=== PATIENT | male | born 1985 | race Caucasian/White ===

== ENCOUNTER 2018-02-13 17:10 | Emergency (ER) | payer MEDICAID ==
[~2018-02-13] VITALS: Ht 154.9 cm; Wt 66.0 kg
[2018-02-13 17:21] VITALS: BP 138/82
[2018-02-13] MEDS ORDERED: LAMO200T2 PO (17:57)
[2018-02-13] MEDS ORDERED: BREX1TAB PO (17:57)
[2018-02-13] MEDS ORDERED: OMEG100T PO (17:57)
== END 2018-02-13 18:15 | disposition home or self-care (01) ==
LOC: ED 18:08
DX: K40.90 Unilateral inguinal hernia, without obstruction or gangrene, not specified as recurrent (principal)
CPT/HCPCS: 99281